=== PATIENT | female | born 2000 | race Caucasian/White ===

== ENCOUNTER 2025-01-28 21:42 | Emergency (ER) | payer BC ==
[~2025-01-28] VITALS: Ht 165.1 cm; Wt 75.4 kg
[2025-01-28] MEDS: dexAMETHasone 4 MG/ML 1 ML VIAL PO ONE (23:30)
[2025-01-28] MEDS: FAMOTIDINE IV BAG 20 MG in IV 1 EA IV ONE (23:30)
[2025-01-28] MEDS: LR 1,000 ML IV ONE (23:30)
[2025-01-29 03:11] VITALS: BP 124/64; TEMP 98.1; O2SAT 98
== END 2025-01-29 03:14 | disposition home or self-care (01) ==
LOC: M ED 21:42
DX: L23.2 Allergic contact dermatitis due to cosmetics (principal)
CPT/HCPCS: 93041; 94760; 96365; 96366; 99284; J1100; J1308